=== PATIENT | female | born 1995 ===

== ENCOUNTER 2019-01-19 08:01 | Emergency (ER) | payer SELFPAY ==
[2019-01-19 08:18] VITALS: BP 111/73
--- NOTE | 2019-01-19 09:26 | UC ---
Lower Extremity/Ankle HPI - HPI Summary HPI Summary: YESTERDAY PATIENT CAUGHT HER RIGHT GREAT TOE WHILE OPENING A DOOR AND PARTIALLY AVULSED HER TOENAIL. - History of Current Complaint Chief Complaint: UCLowerExtremity Stated Complaint: TOE INJURY Time Seen by Provider: 01/19/19 09:09 Hx Obtained From: Patient Hx Last Menstrual Period: 12/25/18 Onset/Duration: Sudden Onset, Lasting Days - 1 DAY, Still Present Severity Initially: Mild Severity Currently: Mild Pain Intensity: 2 Pain Scale Used: 0-10 Numeric Aggravating Factor(s): Nothing Alleviating Factor(s): Nothing Able to Bear Weight: Yes - Allergies/Home Medications Allergies/Adverse Reactions: Allergies Allergy/AdvReac Type Severity Reaction Status Date / Time No Known Allergies Allergy Verified 01/19/19 08:12 Home Medications: Home Medications NK [No Home Medications Reported] 01/19/19 [History Confirmed 01/19/19] PMH/Surg Hx/FS Hx/Imm Hx Previously Healthy: Yes - Surgical History Surgical History: Yes Surgery Procedure, Year, and Place: procedures for ingrown toenails 2015 - Family History Known Family History: Positive: Non-Contributory - Social History Alcohol Use: Occasionally Substance Use Type: None Smoking Status (MU): Never Smoked Tobacco Review of Systems All Other Systems Reviewed And Are Negative: Yes Constitutional: Positive: Negative Skin: Positive: Other - NAIL AVULSION Respiratory: Positive: Negative Cardiovascular: Positive: Negative Gastrointestinal: Positive: Negative Musculoskeletal: Positive: Negative Physical Exam Triage Information Reviewed: Yes Appearance: Well-Appearing, No Pain Distress, Well-Nourished Vital Signs: Initial Vital Signs Temp 97.6 F 01/19/19 08:13 Pulse 67 01/19/19 08:13 Resp 16 01/19/19 08:13 BP 111/73 01/19/19 08:13 Pulse Ox 100 01/19/19 08:13 Vital Signs Reviewed: Yes Eyes: Positive: Conjunctiva Clear ENT: Positive: Hearing grossly normal Neck: Positive: Supple Respiratory: Positive: No respiratory distress, No accessory muscle use Cardiovascular: Positive: Pulses Normal Abdomen Description: Positive: Soft Musculoskeletal: Positive: ROM Intact, No Edema, Other: - NO BONY TENDERNESS RIGHT GREAT TOE Neurological: Positive: Alert Psychological: Positive: Age Appropriate Behavior Skin: Positive: Other - SMALL SKIN AVULSION ADJACENT TO RIGHT GREAT TONEAIL. TOENAIL LAYING DOWN FLAT. MATRIX INTACT. NO BLEEDING. SKIN SLIGHTLY MACERATED DUE TO WET BANDAGE Lower Extremity Course/Dx - Course Course Of Treatment: PARTIAL TOENAIL AVULSION RIGHT GREAT TOE. NAIL IS ACTUALLY LAYING DOWN NICELY NOW. MATRIX INTACT. NO ACUTE INTERVENTION INDICATED. TUBE GAUZE APPLIED FOR PROTECTION. ADVISED PATIENT TO KEEP CLEAN AND DRY. NO INDICATION FOR IMAGING TODAY. FOLLOW-UP IF NEEDED. - Differential Dx/Diagnosis Provider Diagnosis: Avulsion of toenail of right foot Discharge ED - Sign-Out/Discharge Documenting (check all that apply): Patient Departure All imaging exams completed and their final reports reviewed: No Studies - Discharge Plan Condition: Stable Disposition: HOME Patient Education Materials: Nail Avulsion (ED) Referrals: [facility] [Outside] - If Needed Additional Instructions: YOUR NAIL IS ACTUALLY LAYING DOWN NICELY ON THE NAILBED. NO ACUTE INTERVENTION INDICATED TODAY. KEEP THE INJURY COVERED WITH A BULKY DRESSING FOR PROTECTION. BE SURE TO KEEP IT CLEAN AND DRY. CHANGE THE DRESSING AT LEAST ONCE DAILY AND NEEDED IF IT GETS DIRTY OR WET. SEEK FOLLOW-UP IF YOU DEVELOP SPREADING REDNESS OF THE SKIN, PURULENT DRAINAGE, FEVER, INCREASED PAIN OR ANY OTHER CONCERNING SYMPTOMS. - Billing Disposition and Condition Condition: STABLE Disposition: Home
== END 2019-01-19 09:36 | disposition home or self-care (01) ==
LOC: UCEAST 08:01
DX: S91.201A Unspecified open wound of right great toe with damage to nail, initial encounter (principal); W22.8XXA Striking against or struck by other objects, initial encounter; Y92.9 Unspecified place or not applicable
CPT/HCPCS: 99212; G0463